=== PATIENT | female | born 1990 | race Caucasian/White ===

== ENCOUNTER 2017-04-05 11:51 | Emergency (ER) | payer MEDICAID ==
[2017-04-05 12:48] LABS: % IMMATURE GRANULYOCYTES 0.4 % (0.0-1.1); ABSOLUTE IMMATURE GRANULOCYTES 0.04 10^3/uL (0.00-0.10); ADD DIFF? NO; ADD MORPH? NO; ADD SCAN? NO; ATYPICAL LYMPHOCYTE FLAG 10 (0-99); FRAGMENT RBC FLAG 0 (0-99); HEMATOCRIT 41.7 % (38.0-47.0); HEMOGLOBIN 14.5 g/dL (12.6-16.3); LEFT SHIFT FLG 0 (0-99); LIPEMIA HEMOLYSIS FLAG 90 (0-99); MEAN CELL HEMOGLOBIN 31.7 pg (27.9-34.1); MEAN CELL HEMOGLOBIN CONCENTR. 34.8 g/dL (32.4-36.7); MEAN CELL VOLUME 91.2 fL (81.5-99.8); PLATELET CLUMPS FLAG 10 (0-99); PLATELET COUNT 298 10^3/uL (150-400); RED BLOOD CELL COUNT 4.57 10^6/uL (4.18-5.33); RED CELL DISTRIBUTION WIDTH 11.7 % (11.5-15.2)
[2017-04-05 12:53] LABS: ANION GAP 10 mEq/L (8-16); CALCIUM 9.3 mg/dL (8.5-10.4); CARBON DIOXIDE 22 mEq/l (22-31); CHLORIDE 108 mEq/L (97-110); CREATININE 0.7 mg/dL (0.6-1.0); GLOMERULAR FILTRATION RATE > 60; GLUCOSE 104 mg/dL (70-100); POTASSIUM 4.1 mEq/L (3.5-5.2); SODIUM 140 mEq/L (134-144)
[2017-04-05 12:59] LABS: COLOR PALE YELLOW; LEUKOCYTE ESTERASE,URINE NEGATIVE (NEGATIVE); NITRITE,URINE NEGATIVE (NEGATIVE)
[2017-04-05 13:03] LABS: BACTERIA TRACE /hpf (NONE SEEN)
[2017-04-05] MEDS ORDERED: IOPAMIDOL (ISOVUE-300) 100 ML BTL ONE (14:05)
[2017-04-05] MEDS ORDERED: IBUPROFEN 600 MG TAB PO ONE (15:16)
--- NOTE | 2017-04-05 15:16 | EDPHY ---
H & P Stated Complaint: Pelvic pain radiating to back. Time Seen by Provider: 04/05/17 12:02 HPI/ROS: CHIEF COMPLAINT: pelvic and back pain HISTORY OF PRESENT ILLNESS: 27-year-old female presents emergency department complaining suprapubic pelvic pain that started 4 days ago during intercourse. Patient reports the pain is a pressure and cramping pain, patient states 3 days ago the pain started radiating to her back. She reports a continues to feel like a pressure. Yesterday she noticed the pain started down her right leg to her toes with tingling. Patient reports she took her temperature at home 2 days ago and was 99.0. Patient denies saddle anesthesias, no loss of control of her bowel or bladder. She denies urinary frequency, urgency or dysuria, she denies vaginal discharge or vaginal bleeding. No nausea or vomiting, no diarrhea. REVIEW OF SYSTEMS: A comprehensive 10 point review of systems is otherwise negative aside from elements mentioned in the history of present illness. Source: Patient Exam Limitations: No limitations - Personal History LMP (Females 10-55): 8-14 Days Ago Current Tetanus/Diphtheria Vaccine: Yes Current Tetanus Diphtheria and Acellular Pertussis (TDAP): Yes - Medical/Surgical History Hx Asthma: No Hx Chronic Respiratory Disease: No Hx Diabetes: No Hx Cardiac Disease: No Hx Renal Disease: No Hx Cirrhosis: No Hx Alcoholism: No Hx HIV/AIDS: No Hx Splenectomy or Spleen Trauma: No Other PMH: Denies - Social History Smoking Status: Never smoked - Physical Exam Exam: Physical Exam Gen: Alert and Oriented, NAD HEENT: PERRL, moist mucous membranes NECK: no meningismus CV: regular rate and regular rhythm PULM: CTAB, no wheezes ABDOMEN: soft, non tender to palpation, BS present BACK: No CVA tenderness, bilateral SI joint tenderness to palpation, no midline tenderness to palpation NEURO: Neurologically grossly intact, 2/4 deep tendon reflexes patellar and Achilles, positive straight leg raise on right, 5/5 strength bilateral lower extremities and equal EXTREMITIES: normal appearing SKIN: no rash or break in skin on exposed skin PSYCH: answers questions appropriately. Constitutional: Initial Vital Signs Temperature (C) 36.7 C 04/05/17 11:55 Heart Rate 93 04/05/17 11:55 Respiratory Rate 16 04/05/17 11:55 Blood Pressure 115/82 H 04/05/17 11:55 O2 Sat (%) 98 04/05/17 11:55 O2 Delivery Mode Room Air Allergies/Adverse Reactions: Penicillins Allergy (Verified 04/05/17 11:54) Home Medications: Medication Instructions Recorded Velivet 28 Day Tablet 04/05/17 Medical Decision Making - Diagnostics Imaging Results: Imaging Impressions Pelvic/Renal Ultrasound 04/05/17 12:43 Impression: Normal ultrasound pelvis. Results called to Korey Serra PA-C, at 2:[address] 04/05/17 14:00 Impression: Negative CT examination of the abdomen and pelvis. Incidental note of a 14 mm hepatic hemangioma. No evidence of appendicitis. Results called to Korey Serra PA-C at 2:53 p.m. Imaging: Discussed imaging studies w/ call center support representative Radiologist ED Course/Re-evaluation: IV established, CBC, chemistry panel, urinalysis, urine test and pelvic ultrasound ordered. Patient's labs are unremarkable, CBC shows a mildly elevated white blood cell count at 10.6, chemistry panel is unremarkable, urinalysis is normal, test is negative. Pelvic ultrasound is unremarkable. CT abdomen pelvis with IV contrast ordered to rule out any intra- abdominal infection or abnormality. CT abdomen pelvis is normal. Patient has normal vital signs, repeat abdominal exam shows no peritoneal signs. Patient is eating and drinking without difficulty. I do think the patient has a lumbar radiculitis. She is given 600 mg of ibuprofen. She has no symptoms of cauda equina syndrome. The patient will be discharged home. She agrees to follow up with her primary care doctor this week. Patient is given strict return precautions for any neurovascular compromise, worsening abdominal pain, fevers, new symptoms or concerns. Differential Diagnosis: The differential diagnosis for the patient's back pain included but was not limited to musculo-skeletal pain, epidural abscess, herniated disk, spinal fracture, cauda equina and intra-abdominal causes including urinary system. - Data Points Laboratory Results: Laboratory Results 04/05/17 12:16 04/05/17 12:16 04/05/17 04/05/17 04/05/17 12:52 12:52 12:16 WBC RBC Hgb Hct MCV MCH MCHC RDW Plt Count MPV Neut % (Auto) Lymph % (Auto) [place] % (Auto) Eos % (Auto) Baso % (Auto) Nucleat RBC Rel Count Absolute Neuts (auto) Absolute Lymphs (auto) Absolute Monos (auto) Absolute Eos (auto) Absolute Basos (auto) Absolute Nucleated RBC Immature Gran % Immature Gran # Sodium 140 mEq/L mEq/L (134-144) Potassium 4.1 mEq/L mEq/L (3.5-5.2) Chloride 108 mEq/L mEq/L (97-110) Carbon Dioxide 22 mEq/l mEq/l (22-31) Anion Gap 10 mEq/L mEq/L (8-16) BUN 8 mg/dL mg/dL (7-23) Creatinine 0.7 mg/dL mg/dL (0.6-1.0) Estimated GFR > 60 Glucose 104 mg/dL H mg/dL (70-100) Calcium 9.3 mg/dL mg/dL (8.5-10.4) Urine Color PALE YELLOW Urine Appearance CLEAR Urine pH 7.0 (5.0-7.5) Ur Specific [place] 1.003 (1.002-1.030) Urine Protein NEGATIVE (NEGATIVE) Urine Ketones NEGATIVE (NEGATIVE) Urine Blood 1+ H (NEGATIVE) Urine Nitrate NEGATIVE (NEGATIVE) Urine Bilirubin NEGATIVE (NEGATIVE) Urine Urobilinogen NEGATIVE EU EU (0.2-1.0) Ur Leukocyte Esterase NEGATIVE (NEGATIVE) Urine RBC 1-3 /hpf /hpf (0-3) Urine WBC 1-3 /hpf /hpf (0-3) Ur Epithelial Cells TRACE /lpf /lpf (NONE-1+) Urine Bacteria TRACE /hpf H /hpf (NONE SEEN) Urine Glucose NEGATIVE (NEGATIVE) Urine Test NEGATIVE 04/05/17 12:16 WBC 10.71 10^3/uL H 10^3/uL (3.80-9.50) RBC 4.57 10^6/uL 10^6/uL (4.18-5.33) Hgb 14.5 g/dL g/dL (12.6-16.3) Hct 41.7 % % (38.0-47.0) MCV 91.2 fL fL (81.5-99.8) MCH 31.7 pg pg (27.9-34.1) MCHC 34.8 g/dL g/dL (32.4-36.7) RDW 11.7 % % (11.5-15.2) Plt Count 298 10^3/uL 10^3/uL (150-400) MPV 10.0 fL fL (8.7-11.7) Neut % (Auto) 62.7 % % (39.3-74.2) Lymph % (Auto) 30.3 % % (15.0-45.0) [place] % (Auto) 4.9 % % (4.5-13.0) Eos % (Auto) 1.1 % % (0.6-7.6) Baso % (Auto) 0.6 % % (0.3-1.7) Nucleat RBC Rel Count 0.0 % % (0.0-0.2) Absolute Neuts (auto) 6.73 10^3/uL H 10^3/uL (1.70-6.50) Absolute Lymphs (auto) 3.24 10^3/uL H 10^3/uL (1.00-3.00) Absolute Monos (auto) 0.52 10^3/uL 10^3/uL (0.30-0.80) Absolute Eos (auto) 0.12 10^3/uL 10^3/uL (0.03-0.40) Absolute Basos (auto) 0.06 10^3/uL 10^3/uL (0.02-0.10) Absolute Nucleated RBC 0.00 10^3/uL 10^3/uL (0-0.01) Immature Gran % 0.4 % % (0.0-1.1) Immature Gran # 0.04 10^3/uL 10^3/uL (0.00-0.10) Sodium Potassium Chloride Carbon Dioxide Anion Gap BUN Creatinine Estimated GFR Glucose Calcium Urine Color Urine Appearance Urine pH Ur Specific [place] Urine Protein Urine Ketones Urine Blood Urine Nitrate Urine Bilirubin Urine Urobilinogen Ur Leukocyte Esterase Urine RBC Urine WBC Ur Epithelial Cells Urine Bacteria Urine Glucose Urine Test Medications Given: Discontinued Medications Ibuprofen (Motrin) 600 mg PO EDNOW ONE Stop: 04/05/17 15:17 Last Admin: 04/05/17 15:24 Dose: 600 mg Departure - Departure Disposition: Home, Routine, Self-Care Clinical Impression: Right lumbar radiculitis Abdominal pain Qualifiers: Abdominal location: lower abdomen, unspecified Qualified Code(s): R10.30 - Lower abdominal pain, unspecified Condition: Good Instructions: Lumbar Radiculopathy (ED), Abdominal Pain (ED), Lower Back Exercises (ED) Additional Instructions: Take 600 mg of ibuprofen every 8 hours with food for 3-5 days. Gentle massage, gentle [id number] exercises, ice or heat whichever feels better. Follow- up with your primary care doctor at 1st available appointment. I think physical therapy for core strengthening exercises would be helpful. Return to the emergency department for any fevers, loss of control of her bowel or bladder , numbness to your groin, vomiting, worsening abdominal pain, any new symptoms or concerns. Referrals: [facility] [Other] - As per Instructions [facility],. [Clinic] - As per Instructions
[2017-04-05 15:41] VITALS: BP 100/52; PULSE 69; RESP 14; TEMP 97.9; O2SAT 90
== END 2017-04-05 15:41 | disposition home or self-care (01) ==
DX: M54.16 Radiculopathy, lumbar region (principal); R10.30 Lower abdominal pain, unspecified
CPT/HCPCS: Q9967

== ENCOUNTER 2017-07-03 08:06 | Inpatient (IN) | payer MEDICAID ==
[2017-07-03] MEDS ORDERED: NS 1,000 ML IV ONE (08:53)
[2017-07-03] MEDS ORDERED: KETOROLAC 30 MG/1 ML SDV IVP ONE (08:53)
[2017-07-03] MEDS ORDERED: METOCLOPRAMIDE 10 MG/2 ML VIAL IVP ONE (08:53)
--- NOTE | 2017-07-03 08:55 | EDPHY ---
HPI/HX/ROS/PE/MDM Narrative: CHIEF COMPLAINT: Headache, dizziness HPI: The patient is a 27 y/o female arriving with her boyfriend complaining of acute onset dizziness and headache around midnight, almost 9 hours ago. She has a history of low blood pressure and reports similar sensation of lightheadedness and dizziness about once per week, but has never had an associated headache. She reports her left-sided headache came on rapidly over a period of 10 minutes and has been constant since onset at an 8/10 in severity. She has associated nausea, photophobia, and vision changes in her left eye. She says the vision in her left eye feels "like I have a paper over it." She first noticed this vision difficulty around 4:00 when she awoke from sleep. She denies history of migraines, recent trauma, recent illness, or other medical history. No associated chest pain, dyspnea, extremity weakness or paresthesias, fever, or chills. REVIEW OF SYSTEMS: Aside from elements discussed in the HPI, a comprehensive 10-point review of systems was reviewed and is negative. Back was hurting yesterday. PMH: Denies SOCIAL HISTORY: Boyfriend at bedside PHYSICAL EXAM: General:Patient is alert, in no acute distress. ENT:Eyes are normal to inspection. ENT inspection normal. Neck: Normal inspection. Full range of motion. Respiratory:No respiratory distress. Breath sounds normal bilaterally. Cardiovascular: Regular rate and rhythm. Strong peripheral pulses. Normal cap refill. Abdomen:The abdomen is nontender to palpation. There are no peritoneal signs. Back: Normal to inspection. No tenderness to palpation. Skin: Normal color. No rash. Warm and dry. Extremities: Normal appearance. Full range of motion. Neuro: Oriented x3. Normal motor function. Normal sensory function. No pronator drift, normal [id number] ED Course: This is a healthy 27 y/o female who presents with a 9-hour history of dizziness and rapid-onset left-sided headache with associated vision change in her left eye 4 hours after headache onset. She denies history of migraines or similar prior symptoms. Her neuro exam is normal. Plan for IV, labs, head CT, and symptom management. 30mg IV Toradol, 10mg IV Reglan, 25mg IV Reglan, and 1L IV NS administered. 1155: Head CTA shows vertebral artery dissection per Dr. Lisa, radiology. 1205: Consulted with Dr. Ba, neurology. He recommends admission and 324mg PO aspirin in addition to CTA of her neck and MRI. I discussed this recommendation with the patient and though reluctant, she agrees to stay in the hospital. Patient mentioned to the RN that her symptoms began after having rough sex with her boyfriend last night. 1219: Spoke with hospitalist service. Dr. Malone accepts admission. MDM: This patient presents with signs and symptoms of vertebral artery dissection and subacute small CVA, confirmed on imaging. She is not a candidate for tPA at this time given timing and size of infarct. Per Neuro, have started ASA and will admit to hospitalist. - Data Points Imaging Results: Imaging Impressions Head CT 07/03/17 08:53 Impression: 1. Normal CT brain without contrast. 2. No sinusitis. 3.Consider MRI of the brain without and with contrast enhancement, if there is continued clinical concern. Findings and recommendations discussed with Emergency Department physician, Sumit Romo MD at 10:19 hour, 07/03/2017. Final report concurs with initial preliminary interpretation. Imaging: Discussed imaging studies w/ call center coordinator Radiologist, I viewed and interpreted images myself Laboratory Results: Laboratory Results 07/03/17 09:06 07/03/17 09:06 07/03/17 07/03/17 07/03/17 09:06 09:06 09:06 WBC 8.01 10^3/uL 10^3/uL (3.80-9.50) RBC 4.33 10^6/uL 10^6/uL (4.18-5.33) Hgb 13.6 g/dL g/dL (12.6-16.3) Hct 39.1 % % (38.0-47.0) MCV 90.3 fL fL (81.5-99.8) MCH 31.4 pg pg (27.9-34.1) MCHC 34.8 g/dL g/dL (32.4-36.7) RDW 11.2 % L % (11.5-15.2) Plt Count 222 10^3/uL 10^3/uL (150-400) MPV 10.2 fL fL (8.7-11.7) Neut % (Auto) 52.7 % % (39.3-74.2) Lymph % (Auto) 36.7 % % (15.0-45.0) [place] % (Auto) 6.6 % % (4.5-13.0) Eos % (Auto) 3.2 % % (0.6-7.6) Baso % (Auto) 0.4 % % (0.3-1.7) Nucleat RBC Rel Count 0.0 % % (0.0-0.2) Absolute Neuts (auto) 4.22 10^3/uL 10^3/uL (1.70-6.50) Absolute Lymphs (auto) 2.94 10^3/uL 10^3/uL (1.00-3.00) Absolute Monos (auto) 0.53 10^3/uL 10^3/uL (0.30-0.80) Absolute Eos (auto) 0.26 10^3/uL 10^3/uL (0.03-0.40) Absolute Basos (auto) 0.03 10^3/uL 10^3/uL (0.02-0.10) Absolute Nucleated RBC 0.00 10^3/uL 10^3/uL (0-0.01) Immature Gran % 0.4 % % (0.0-1.1) Immature Gran # 0.03 10^3/uL 10^3/uL (0.00-0.10) Sodium 137 mEq/L mEq/L (134-144) Potassium 4.1 mEq/L mEq/L (3.5-5.2) Chloride 108 mEq/L mEq/L (97-110) Carbon Dioxide 21 mEq/l L mEq/l (22-31) Anion Gap 8 mEq/L mEq/L (8-16) BUN 7 mg/dL mg/dL (7-23) Creatinine 0.8 mg/dL mg/dL (0.6-1.0) Estimated GFR > 60 Glucose 99 mg/dL mg/dL (70-100) Calcium 9.1 mg/dL mg/dL (8.5-10.4) Beta HCG, Qual NEGATIVE Medications Given: Discontinued Medications Aspirin (Aspirin) 324 mg PO EDNOW ONE Stop: 07/03/17 12:11 Last Admin: 07/03/17 12:15 Dose: 324 mg Diphenhydramine HCl (Benadryl Injection) 25 mg IVP EDNOW ONE Stop: 07/03/17 08:54 Last Admin: 07/03/17 09:04 Dose: 25 mg Sodium Chloride (Ns) 1,000 mls @ 0 mls/hr IV ONCE ONE; Wide Open PRN Reason: Protocol Stop: 07/03/17 08:54 Last Admin: 07/03/17 09:04 Dose: 1,000 mls Ketorolac Tromethamine (Toradol) 30 mg IVP EDNOW ONE Stop: 07/03/17 08:54 Last Admin: 07/03/17 09:03 Dose: 30 mg Metoclopramide HCl (Reglan Injection) 10 mg IVP EDNOW ONE Stop: 07/03/17 08:54 Last Admin: 07/03/17 09:03 Dose: 10 mg General Time Seen by Provider: 07/03/17 08:31 Initial Vital Signs: Initial Vital Signs Temperature (C) 36.5 C 07/03/17 08:11 Heart Rate 80 07/03/17 08:11 Respiratory Rate 16 07/03/17 08:11 Blood Pressure 105/76 07/03/17 08:11 O2 Sat (%) 98 07/03/17 08:11 O2 Delivery Mode Room Air Allergies/Adverse Reactions: apple Allergy (Verified 07/03/17 13:07) Penicillins Allergy (Verified 07/03/17 08:14) Home Medications: Medication Instructions Recorded Aspirin [Aspirin 325 mg (*)] 325 mg PO DAILY #1 tab 07/04/17 Departure - Departure Disposition: [facility] Inpatient Acute Clinical Impression: Vertebral artery dissection, Vision changes, Acute ischemic stroke Headache Qualifiers: Headache type: other headache syndrome Qualified Code(s): G44.89 - Other headache syndrome Condition: Fair Report Scribed for: Sumit Romo Report Scribed by: Neyda Block Date of Report: 07/03/17 Time of Report: 08:55 Physician Review and Approval Statement: Portions of this note were transcribed by an ED scribe. I personally performed the history, physical exam, and medical decision making; and confirm the accuracy of the information in the transcribed note.
[2017-07-03 09:12] LABS: % IMMATURE GRANULYOCYTES 0.4 % (0.0-1.1); ABSOLUTE IMMATURE GRANULOCYTES 0.03 10^3/uL (0.00-0.10); ADD DIFF? NO; ADD MORPH? NO; ADD SCAN? NO; ATYPICAL LYMPHOCYTE FLAG 20 (0-99); FRAGMENT RBC FLAG 0 (0-99); HEMATOCRIT 39.1 % (38.0-47.0); HEMOGLOBIN 13.6 g/dL (12.6-16.3); LEFT SHIFT FLG 0 (0-99); LIPEMIA HEMOLYSIS FLAG 90 (0-99); MEAN CELL HEMOGLOBIN 31.4 pg (27.9-34.1); MEAN CELL HEMOGLOBIN CONCENTR. 34.8 g/dL (32.4-36.7); MEAN CELL VOLUME 90.3 fL (81.5-99.8); MEAN PLATELET VOLUME 10.2 fL (8.7-11.7); PLATELET CLUMPS FLAG 10 (0-99); PLATELET COUNT 222 10^3/uL (150-400); RED BLOOD CELL COUNT 4.33 10^6/uL (4.18-5.33); RED CELL DISTRIBUTION WIDTH 11.2 % (11.5-15.2)
[2017-07-03 09:30] LABS: ANION GAP 8 mEq/L (8-16); CALCIUM 9.1 mg/dL (8.5-10.4); CARBON DIOXIDE 21 mEq/l (22-31); CHLORIDE 108 mEq/L (97-110); CREATININE 0.8 mg/dL (0.6-1.0); GLOMERULAR FILTRATION RATE > 60; GLUCOSE 99 mg/dL (70-100); POTASSIUM 4.1 mEq/L (3.5-5.2); SODIUM 137 mEq/L (134-144)
[2017-07-03] MEDS ORDERED: IOPAMIDOL (ISOVUE 370) 100 ML BTL IV ONE ×2 (11:12→12:46)
[2017-07-03] MEDS ORDERED: ASPIRIN 81 MG CHEWABLE TAB PO ONE (12:10)
[2017-07-03] MEDS ORDERED: LORazepam 2 MG/ML INJ IVP ONE (12:25)
[2017-07-03] MEDS ORDERED: NICOTINE 21 MG/24 HR PATCH TD ONE (12:27)
[2017-07-03] MEDS ORDERED: LORazepam 2 MG/ML INJ ONE (13:02)
[2017-07-03] MEDS ORDERED: ONDANSETRON DISINTEGRATING 4 MG TAB PO PRN (14:33)
[2017-07-03] MEDS ORDERED: ONDANSETRON 4 MG/2 ML VIAL IVP PRN (14:33)
[2017-07-03] MEDS ORDERED: oxyCODONE IR 5 MG TAB PO PRN (14:33)
[2017-07-03] MEDS ORDERED: ALBUTEROL 3 ML DEYVIAL ONE (14:39)
--- NOTE | 2017-07-03 15:25 | GHP ---
[f rep st] HISTORY AND PHYSICAL DATE OF ADMISSION: 07/03/2017 CHIEF COMPLAINT: Dizziness. HISTORY OF PRESENT ILLNESS: This is a 27-year-old female with no past medical history. Apparently around midnight she was (this history is kind of uncomfortable) having sexual activity when she deve loped sudden onset of dizziness. This progressed to a frontal headache. She is unable to walk chapo use she is unsteady on her feet. She is not having any difficulty swallowing. No focal weakness. REVIEW OF SYSTEMS: A 10-point review of systems was obtained and was negative. PAST MEDICAL HISTORY: None. MEDICATIONS: Oral and contraceptives. SOCIAL HISTORY: Does smoke. No alcohol. She is with a 1-year-old child. FAMILY HISTORY: She is adopted. PHYSICAL EXAM: VITAL SIGNS: Afebrile. Blood pressure is 114/67, heart rate 69, oxygen saturation 94% on room air. GENERAL: Patient is well developed, no apparent distress. HEENT: Nonicteric scl erae. Extraocular movements intact. No significant nystagmus. NECK: Supple. No thyromegaly. DERRICK NGS: Good effort. Clear to auscultation bilaterally. CARDIOVASCULAR: Regular rate and rhythm. N o murmurs or gallops. ABDOMEN: Positive bowel sounds. Soft, nontender, nondistended. No hepatosp lenomegaly. EXTREMITIES: No clubbing, cyanosis, or edema. SKIN: Without rash. Warm, intact. NE UROLOGIC: Alert and oriented x3. There is no dysmetria, 5/5 strength in all 4 extremities. PSYCH: Normal mood, affect. LABORATORY DATA: CBC is normal. Chemistry is negative. HCG is negative. CTA of the neck shows a probable vertebral artery dissection on the left with thrombosis of the distal 2 cm. MRI of the bra in. Shows acute infarct in the left cerebellar hemisphere which is 1.5 x 0.5 cm. ASSESSMENT: This is a 27-year-old female presenting with left vertebral artery dissection. PLAN: Left vertebral artery dissection. Neurology has been consulted and they are recommending asp irin. Will defer to them any question of anticoagulation. This seems to be a small stroke and I wo uld anticipate her to improve. /[id number]/MODL
--- NOTE | 2017-07-03 16:04 | NEUROPROG ---
Assessment: HOSPITAL NEUROLOGY CONSULT REQUESTING: Herb Malone MD REASON: vertebral artery dissection, stroke HPI: 27 year old right-handed woman with a history of tobacco and cannabis smoking presented to our facility this AM due to headache. She states last evening she was having sexual intercourse with her when she developed sudden onset lightheadedness, like she was going to pass out. A holocranial pounding headache then developed. She tried to get up and walk and felt a little unsteady on her feet. She went to sleep and woke up with a left hemicranial headache. Given the continued headache, she presented to our ED. She was not experiencing any weakness, sensory loss, vision loss, diplopia, hearing change. On evaluation in the ED, a CTA head was done showing thrombosis of the left vertebral artery at V3-V4 segment, suspicious for dissection. CTA neck confirmed the aforementioned without any additional proximal extension. MRI brain wo was done showing a small curvilinear acute infarct in the left cerebellar hemisphere. Aspirin was started and she was admitted for observation. She is adopted, so no known history of connective tissue disease, and she has no stigmata of such. No recent head/neck trauma or acceleration/deceleration injury. She denies toxic ingestions, such as stimulants. No history of HTN or other conventional vascular risk factors, save for smoking. She continues to have mild left hemicranial headache, but otherwise feels baseline. ROS: As per the HPI, otherwise a complete 12 point ROS was performed and is negative ALLERGIES AND MEDS: As recorded in the EMR - reviewed and reconciled PFSH: As per the intake H&P by Dr. Malone from today EXAM: VS reviewed in EMR GEN: WDWN laying in NAD HEENT: NCAT, sclera anicteric, conjunctiva not injected, MMM, oropharynx clear, no scalp tenderness NECK: supple, nontender, no meningismus CV: RRR s1 s2 wo m/r/c/g. Carotid pulses 2+ wo bruit NEURO: MS: awake, alert, oriented to all spheres. Speech nondysarthric. No language disturbance. Follows commands. Attends to both sides. Recent/remote memory grossly intact. Mood euthymic. Good fund of knowledge. CN: pupils 5mm round and reactive. Fundi with sharp discs. VFF. Primary gaze centered. Full ocular motility. Facial sensation preserved. Face symmetric. Hearing grossly intact to finger rub. Palatoglossal movements intact. Shoulder shrug and head turn strong. MOTOR: normal bulk/tone. No adventitial movements. Full power throughout. SENSORY: intact to all modalities throughout. No extinction. COORD: no ataxia FN/HS. Lizbeth preserved. REFLEX: plantars down. No clonus. DTRS 2/4. GAIT: deferred to PT safety eval DATA REVIEW: Labs reviewed in EMR PERSONALLY INTERPRETED RESULTS AND DATA: MRI brain wo and CTA head/neck per the HPI IMPRESSION AND RECOMMENDATIONS: // LEFT VERTEBRAL ARTERY DISSECTION // ACUTE ISCHEMIC STROKE FROM DISSECTION // TOBACCO AND CANNABIS SMOKING Patient with spontaneous vertebral artery dissection, likely predisposed to endothelial damage from smoking, and likely HTN intimal damage from accelerated HTN with sexual activity. Will screen UDS for stimulants. Cont ASA 325mg daily - no benefit of anticoagulation over antiplatelet per CADISS trial - no evidence of mobile thrombus on CTA necessitating anticoagulation Keep normotensive - of the utmost importance in preventing further propagation of dissection Close neurosurveillance overnight PT/OT/MANUFACTURING ADVISOR consults Could add low dose statin for endothelial stabilization properties, but no clear evidence for role in statins in cerebral artery dissection I stressed smoking cessation with the patient (and her who also smokes) at length. Tomorrow will plan on obtaining MRA with contrast at T1 fat suppression to further characterize thrombotic/intraluminal hemorrhagic burden If clinical course remains stable, will anticipate she can be discharged home tomorrow with 3 months antiplatelet and repeat vascular imaging at 3 months Objective: Vital Signs Temp Pulse Resp BP Pulse Ox 36.4 C 69 14 114/67 94 07/03/17 13:43 07/03/17 13:43 07/03/17 13:43 07/03/17 13:43 07/03/17 13:43 07/02/17 07/03/17 07/04/17 05:59 05:59 05:59 Intake Total 1000 Output Total 200 Balance 800 Allergies/Adverse Reactions: apple Allergy (Verified 07/03/17 13:07) Penicillins Allergy (Verified 07/03/17 08:14)
[2017-07-03] MEDS: ACETAMINOPHEN 325 MG TAB PO PRN (19:30)
[2017-07-04] MEDS: ACETAMINOPHEN 325 MG TAB PO PRN (02:34)
[2017-07-04] MEDS ORDERED: ASPIRIN 325 MG TAB PO SCH (09:00)
--- NOTE | 2017-07-04 10:34 | NEUROPROG ---
Assessment: BACKGROUND: 27 year old right-handed woman with a history of tobacco and cannabis smoking presented to our facility this AM due to headache. She states last evening she was having sexual intercourse with her when she developed sudden onset lightheadedness, like she was going to pass out. A holocranial pounding headache then developed. She tried to get up and walk and felt a little unsteady on her feet. She went to sleep and woke up with a left hemicranial headache. Given the continued headache, she presented to our ED. She was not experiencing any weakness, sensory loss, vision loss, diplopia, hearing change. On evaluation in the ED, a CTA head was done showing thrombosis of the left vertebral artery at V3-V4 segment, suspicious for dissection. CTA neck confirmed the aforementioned without any additional proximal extension. MRI brain wo was done showing a small curvilinear acute infarct in the left cerebellar hemisphere. Aspirin was started and she was admitted for observation. She is adopted, so no known history of connective tissue disease, and she has no stigmata of such. No recent head/neck trauma or acceleration/deceleration injury. She denies toxic ingestions, such as stimulants. No history of HTN or other conventional vascular risk factors, save for smoking. She continues to have mild left hemicranial headache, but otherwise feels baseline. INTERVAL HISTORY: Patient reports no events overnight. Feeling back to baseline. No vision loss , hearing change, weakness, gait instability when walking to/from bathroom. EXAM: VS reviewed in EMR MS: awake, alert, oriented to all spheres. Speech nondysarthric. No language disturbance. Follows commands. Attends to both sides. Recent/remote memory grossly intact. Mood euthymic. Good fund of knowledge. CN: pupils 5mm round and reactive. Fundi with sharp discs. VFF. Primary gaze centered. Full ocular motility. Facial sensation preserved. Face symmetric. Hearing grossly intact to finger rub. Palatoglossal movements intact. Shoulder shrug and head turn strong. MOTOR: normal bulk/tone. No adventitial movements. Full power throughout. SENSORY: intact to all modalities throughout. No extinction. COORD: no ataxia FN/HS. Lizbeth preserved. REFLEX: plantars down. No clonus. DTRS 2/4. 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 Still awaiting UDS for stimulants screening. Cont ASA 325mg daily - no benefit of anticoagulation over antiplatelet per CADISS trial - no evidence of mobile thrombus on CTA necessitating anticoagulation Keep normotensive - of the utmost importance in preventing further propagation of dissection Close neurosurveillance PT/OT/APPLICATION TESTER consults Could add low dose statin for endothelial stabilization properties, but no clear evidence for role in statins in cerebral artery dissection I stressed smoking cessation with the patient (and her who also smokes) at length. 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 MRA with wow with T1 fat suppression to further characterize mural thrombus/ hemorrhagic burden Anticipate she will be able to be discharged today after review of MRA. She will need to stay on ASA 325mg daily. Followup with PCP for BP monitoring and any needed optimization. Followup with me in 3 months, at which point I will repeat vascular imaging to ensure resolution. 40 mins in direct patient care activities on the floor. Objective: Vital Signs Temp Pulse Resp BP Pulse Ox 36.8 C 61 12 111/66 97 07/04/17 07:16 07/04/17 07:16 07/04/17 07:16 07/04/17 07:16 07/04/17 07:16 07/03/17 07/04/17 07/05/17 05:59 05:59 05:59 Intake Total 1400 Output Total 200 Balance 1200 Allergies/Adverse Reactions: apple Allergy (Verified 07/03/17 13:07) Penicillins Allergy (Verified 07/03/17 08:14)
[2017-07-04] MEDS ORDERED: LORazepam 2 MG/ML INJ IVP ONE ×2 (10:47→14:30)
[2017-07-04 10:57] LABS: PHENCYCLIDINE URINE BCH < 6 ng/ml (NEGATIVE); PHENCYCLIDINE URINE BCH NEGATIVE (NEGATIVE)
[2017-07-04 11:08] LABS: TETRAHYDROCANNABINOL URINE 102 ng/mL (NEGATIVE)
[2017-07-04 11:38] LABS: TETRAHYDROCANNABINOL URINE 102 ng/mL (NEGATIVE)
[2017-07-04] MEDS ORDERED: GADOBUTROL 10 ML VIAL IVP ONE (14:13)
[2017-07-04 19:21] VITALS: BP 123/76; PULSE 79; RESP 22; TEMP 98.3; O2SAT 97
== END 2017-07-04 19:47 | disposition home or self-care (01) | DRG 64 ==
LOC: F3N 13:37 → OBSVTOIN 14:33
PROVIDERS: ADMIT Internal Medicine; ATTEND Internal Medicine
DX: I63.012 Cerebral infarction due to thrombosis of left vertebral artery (principal); I77.74 Dissection of vertebral artery; F17.210 Nicotine dependence, cigarettes, uncomplicated; F12.90 Cannabis use, unspecified, uncomplicated
CPT/HCPCS: 80307; 92610-GN; 97161-GP; 97165-GO; A9585; G0480; J1200; J1885; J2060; J2765; Q9967

== ENCOUNTER → 2017-11-05 | Outpatient (CLI) | payer MEDICAID ==
[~2017-11-05] MED LIST: GADOBUTROL 10 ML VIAL IVP ONE
== END ==
LOC: FIMAGING 07:21
PROVIDERS: ATTEND Psychiatry & Neurology Neurology
DX: Z48.812 Encounter for surgical aftercare following surgery on the circulatory system (principal); I77.74 Dissection of vertebral artery
CPT/HCPCS: A9585